=== PATIENT | male | born 1955 | race Caucasian/White ===

== ENCOUNTER 2016-12-15 14:41 | Emergency (ER) | payer OTHER ==
[2016-12-15 16:00] LABS: URINE SOURCE VOIDED
[2016-12-15 16:08] LABS: BILIRUBIN URINE NEGATIVE (NEGATIVE); BLOOD URINE 1+ (NEGATIVE); CLARITY CLEAR (CLEAR); COLOR AMBER; LEUKOCYTES URINE TRACE (NEGATIVE); NITRITE URINE NEGATIVE (NEGATIVE); PROTEIN URINE 1+(30 mg/dL) mg/dL (NEGATIVE); UROBILINOGEN URINE NORMAL
[2016-12-15 16:12] LABS: URINE CULTURE PL NEEDED? YES; URINE EPITHELIAL CELLS >10 /HPF (<10); URINE RBC <10 /HPF (<10); URINE WBC <10 /HPF (<10)
[2016-12-15 16:32] LABS: MANUAL DIFF NEEDED? NO
[2016-12-15] MEDS ORDERED: PHENERGAN IM ONE (16:33)
[2016-12-15 16:35] LABS: BASO% 0.1 % (0.0-0.8); EOS# 0.04 X1000 (0.0-0.7); EOS% 0.5 % (0.0-10.0); HEMATOCRIT 51.5 % (42.0-52.0); HEMOGLOBIN 17.8 g/dL (14.0-18.0); IMM GRAN# 0.02 X1000 (0.0-0.04); IMM GRAN% 0.2 % (0.0-0.5); LYMPH# 0.78 X1000 (1.2-3.4); LYMPH% 9.6 % (20.5-51.1); MCH 30.3 PG (27-31); MCHC 34.6 g/dL (33-37); MCV 87.6 FL (81-99); MONO% 12.3 % (1.7-9.3); MPV 11.4 FL (7.4-10.4); NEUT% 77.3 % (42.2-75.2); PLT 125 X1000 (130-400); RBC 5.88 XMIL (4.7-6.1)
[2016-12-15 16:51] LABS: AGAP 16; ALBUMIN 3.7 g/dL (3.5-5.0); ALKALINE PHOSPHATASE 74 U/L (32-122); AMYLASE 20 U/L (20-200); BUN 21 mg/dL (8-22); CALCIUM 8.4 mg/dL (8.8-10.2); CHLORIDE 92 mmol/L (98-107); COSMO 272; GOT 41 U/L (10-34); GPT 64 U/L (10-44); LIPASE 14 U/L (13-60); POTASSIUM 3.7 mmol/L (3.5-5.1); SODIUM 128 mmol/L (136-145); TCO2 21 mmol/L (25-35); TOTAL PROTEIN 6.7 g/dL (6.3-8.3)
--- NOTE | 2016-12-15 17:01 | PROVIDER DOCUMENTATION ---
HPI-Abdominal Pain/GI Problem - General Chief Complaint: N/V/D Stated Complaint: N/V/D Time Seen by Provider: 12/15/16 16:10 Source: patient, family Allergies/Adverse Reactions: Patient Allergies Allergy/AdvReac Type Severity Reaction Status Date / Time codeine Allergy Severe Unknown Verified 12/15/16 15:47 venom-honey bee Allergy Severe ANAPHYLAXIS Verified 12/15/16 15:47 [bee venom (honey bee)] Home Medications: Home Medication List Medication Instructions Recorded Confirmed Last Taken Type Alprazolam [Xanax] 0.5 mg PO QHS 12/20/14 12/15/16 04/06/15 21:00 History Dextroamphetamine/Amphetamine 30 mg PO BID 12/20/14 12/15/16 04/07/15 09:00 History [Adderall 30 mg Tablet] Metformin E.r. [Glucophage Xr] 500 mg PO BID 12/20/14 12/15/16 04/07/15 09:00 History Pravastatin Sodium 80 mg PO DAILY 12/20/14 12/15/16 04/06/15 21:00 History Lisinopril 10 mg PO DAILY 02/02/15 12/15/16 04/07/15 09:00 History Cyclobenzaprine [Flexeril] 10 mg PO TID #10 tablet 04/07/15 12/15/16 Unknown Rx Hydrocodone/APAP 7.5 mg/325 mg 1 each PO Q6H PRN PRN #14 tablet 04/07/15 Unknown Rx [[place]-7.5] Ondansetron [Zofran] 4 mg PO Q6H PRN PRN #20 tablet 04/07/15 12/15/16 Unknown Rx Loperamide HCl [Imodium A-D] 2 mg PO 4XDAY PRN PRN #20 tablet 12/15/16 Unknown Rx Ondansetron Odt [Zofran 8Mg Odt] 8 mg PO Q8H PRN PRN #20 tablet 12/15/16 Unknown Rx Promethazine [Phenergan] 25 mg PO Q6H PRN PRN #20 tablet 12/15/16 Unknown Rx - History of Present Illness-ABD Nature of Presenting Problems: 61 y/o WM presents to the ED with c/o N/V/D x 3 days. Pt states 4-5 episodes of vomiting, 20 episodes of diarrhea daily. States zofran, lomotil, imodium not helping. Denies any abd. pain, other than generalized soreness and occasional cramping. Review of Systems - Adult - REVIEW OF SYSTEMS - ADULT Constitutional: reports: no symptoms reported, fever (99.9F at home). denies: chills Eyes: reports: no symptoms reported. denies: blurred vision, double vision Ears, Nose, Mouth & Throat: reports: no symptoms reported. denies: ear pain, nose pain Cardiovascular: reports: no symptoms reported. denies: chest pain, palpitations Respiratory: reports: no symptoms reported. denies: cough, dyspnea on exertion , shortness of breath Gastrointestinal: reports: see HPI, abdominal pain, diarrhea, nausea, vomiting. denies: constipation Genitourinary: reports: no symptoms reported. denies: dysuria, frequency Musculoskeletal: reports: no symptoms reported. denies: joint pain, joint swelling Integumentary: reports: no symptoms reported. denies: nail changes, rash Neurological: reports: see HPI, headache/migraines. denies: numbness, paresthesia Psychiatric: reports: no symptoms reported Endocrine: reports: no symptoms reported. denies: cold intolerance, heat intolerance Hematologic/Lymphatic: reports: no symptoms reported. denies: easy bruising, prolonged bleeding Allergic/Immunologic: reports: no symptoms reported All Other Systems: Reviewed and Negative Past History - Adult - PAST MEDICAL HISTORY-ADULT Review of Records: reports: Nursing Assessment Review, Medications Reviewed Major Childhood Illnesses: reports: denies history Cardiovascular: reports: HTN, hyperlipidemia Respiratory: reports: denies history Gastrointestinal: reports: GERD Obstetrical/Gynecological: reports: denies history Genitourinary: reports: denies history Musculoskeletal: reports: neck/back injury, other (chronic bilateral lower extremity weakness) Neurological: reports: TIA Endocrine/Immune: reports: denies history Other Conditions: reports: denies history - PRIOR SURGERIES/PROCEDURES Surgical/Procedure History: reports: joint replacement, other (cardiac cath) - IMMUNIZATION STATUS Childhood Immunizations: See Nurse Assessment Flu Vaccine: See Nurse Assessment - SOCIAL HISTORY Smoking: quit greater than 1 year Physical Exam-General - PHYSICAL EXAM-ADULT Initial Vital Signs Reviewed: Yes - CONSTITUTIONAL General Appearance: alert, mild distress - EYES Eyes: pink conjunctivae - HEAD, EARS, NOSE, MOUTH & THROAT HENMT: normocephalic/atraumatic, moist mucous membranes - NECK Neck: supple, normal inspection - RESPIRATORY Respiratory: lungs clear, normal breath sounds. negative: crackles, rales, rhonchi, stridor, wheezing - CARDIOVASCULAR Cardiovascular: regular rate, rhythm. negative: bradycardia, tachycardia - GASTROINTESTINAL (ABDOMEN) Abdominal Exam: normal bowel sounds, soft, tenderness (generalized). negative: distended, guarding, rigid, rebound, McBurney's point tenderness, Loera's sign - MUSCULOSKELETAL Back Exam: normal inspection, no CVA tenderness Extremity: normal gait - SKIN Integumentary: normal color, normal turgor, warm/dry - NEUROLOGIC Neurologic: negative: aphasia - PSYCHIATRIC Psych/Mental Status: normal mood/affect, normal thought content, normal thought process, oriented x 3 Progress - PLAN OF CARE/RESULTS Progress/Plan/Lab Results: Discussed pt with Dr. Tinoco; he agreed with d/c plan. Discussed tx and f/u with pt and family. - XRAY 1 XRAY Study: Chest Impression: See EMR Report (normal chest, per Dr. Mims) 2 XRAY Study: Abdomen XRAY Interpretation: NAD Departure - Departure Time of Disposition Order: 19:13 DIAGNOSIS: Dehydration, Elevated blood ketone body level, Gastroenteritis, Hyperglycemia Disposition: HOME 01 Certified Medical Emergency: Emergent Condition: Stable Additional Instructions: Take medications as directed. Drink plenty of fluids. Follow up with PCP for further management. ED Follow Up Instructions: You have been treated by a care provider in the Emergency Department. These instructions are being provided to you so you can have an understanding of how to care for yourself upon discharge. Upon discharge from the Emergency Department, you are responsible for making arrangements for follow-up care by a physician of your choice. Take all prescribed medications as directed. Return to the Emergency Department immediately for any new or worsening symptoms. You may call the Physician Referral phone number at [phone] to obtain a list of Physicians who are taking new patients. Prescriptions: Loperamide HCl [Imodium A-D] 2 mg PO 4XDAY PRN PRN #20 tablet PRN Reason: Diarrhea Promethazine [Phenergan] 25 mg PO Q6H PRN PRN #20 tablet PRN Reason: Nausea Ondansetron Odt [Zofran 8Mg Odt] 8 mg PO Q8H PRN PRN #20 tablet PRN Reason: Nausea Referrals: Efraín Salguero [Primary Care Provider] - Attestation - Physician/ CARLIE Attestation Patient care was provided by Advanced Practice Provider:: Yes Advanced Practice Provider:: Abby Juarez Advanced Practice Provider documentation review:: The Mid-level provider documentation, treatment plan and medical decision making was reviewed by the physician who agrees with all treatment and medical decision making by the MLP.
[2016-12-15] MEDS ORDERED: NS 1,000 ML IV ONE ×2 (17:11→19:05)
--- NOTE | 2016-12-15 18:49 | Diag Imaging Result Document ---
PROCEDURE NAME: CHEST-2 VIEWS - 12/15/2016 FRONTAL AND LATERAL CHEST, 2 VIEWS: FINDINGS: Compared to 02/02/2015. The lungs are well expanded. The heart is not enlarged. The vessels are not distended. No pneumonia. No pleural effusions. No free air beneath the diaphragm. There has been prior surgery to the lower neck. IMPRESSION: No acute abnormality.
[2016-12-15 18:59] LABS: BLOOD TYPE ARTERIAL; DRAW SITE R RADIAL; METHB 1.1 % (0.0-1.5); PCO2(98.6) 26 mmHg (35-45); PO2(98.6) 80 mmHg (60-100); SAMPLE BLOOD; SAO2 98.3 % (95.0-100.0); THB 17.2 g/dL (11.5-17.4)
[2016-12-15 19:02] LABS: ALLEN TEST YES; MODALITY ROOM AIR
[2016-12-15 19:13] VITALS: BP 107/62
--- NOTE | 2016-12-16 06:25 | Diag Imaging Result Document ---
PROCEDURE NAME: ABDOMEN FLAT/UPRIGHT - 12/15/2016 FLAT AND UPRIGHT, FOUR VIEWS: COMPARISON: Compared to 12/20/2014. FINDINGS: No free air beneath the diaphragm. The gallbladder has been removed. No organomegaly. No bowel obstruction. No abnormal abdominal calcifications. There are several pelvic calcifications believed to be phleboliths. IMPRESSION: No acute abnormality.
== END 2016-12-15 20:30 | disposition home or self-care (01) ==
LOC: P.ED 14:41
DX: K52.9 Noninfective gastroenteritis and colitis, unspecified (principal); E86.0 Dehydration; R73.9 Hyperglycemia, unspecified; R73.09 Other abnormal glucose; R11.2 Nausea with vomiting, unspecified; R19.7 Diarrhea, unspecified; R50.9 Fever, unspecified; R10.9 Unspecified abdominal pain; Z79.899 Other long term (current) drug therapy; R51 Headache; R10.817 Generalized abdominal tenderness; I10 Essential (primary) hypertension; E78.5 Hyperlipidemia, unspecified; Z86.73 Personal history of transient ischemic attack (TIA), and cerebral infarction without residual deficits; Z96.60 Presence of unspecified orthopedic joint implant; Z87.891 Personal history of nicotine dependence
CPT/HCPCS: 71020; 74020; 80053; 81001; 82009; 82150; 82805; 83690; 85025; 87088; 87804; 96360; 96361; 96372; J2550; J7030